=== PATIENT | female | born 1965 | race Caucasian/White ===

== ENCOUNTER → 2023-12-12 09:09 | Outpatient (REF) | payer OTHER, SELFPAY | LOC: RAD 09:09 | PROVIDERS: ATTENDING PHYSICIAN Family Medicine | DX: R22.41 Localized swelling, mass and lump, right lower limb (principal); R05.3 Chronic cough | CPT/HCPCS: 71046; 73564; 76882 ==

== ENCOUNTER → 2024-10-17 07:53 | Outpatient (REF) | payer OTHER, SELFPAY | LOC: HWRAD 07:53 | PROVIDERS: ATTENDING PHYSICIAN Family Medicine | DX: R00.2 Palpitations (principal); E04.9 Nontoxic goiter, unspecified; R60.0 Localized edema | CPT/HCPCS: 73564; 76536 ==

== ENCOUNTER → 2025-07-14 13:25 | Outpatient (REF) | payer OTHER, SELFPAY | LOC: HWRAD 13:25 | PROVIDERS: ATTENDING PHYSICIAN Specialist; FAMILY PHYSICIAN Family Medicine | DX: M54.16 Radiculopathy, lumbar region (principal) | CPT/HCPCS: 72131 ==